=== PATIENT | male | born 1990 | race Two or more races ===

== ENCOUNTER 2017-01-03 14:03 | Emergency (ER) | payer SELFPAY ==
[~2017-01-03] VITALS: Ht 167.6 cm; Wt 59.0 kg
[~2017-01-03 14:03] MED LIST: AMOXIL875 MG PO; TYLENOL #3 PO
== END 2017-01-03 15:05 | disposition home or self-care (01) ==
LOC: CFTX 14:03 → CED 14:03 → CFTX 14:51
DX: K02.9 Dental caries, unspecified (principal); F17.210 Nicotine dependence, cigarettes, uncomplicated
CPT/HCPCS: 99282